=== PATIENT | male | born 1975 | race Caucasian/White ===

== ENCOUNTER 2017-05-09 02:24 | Emergency (ER) | payer OTHER, MEDICAID ==
[~2017-05-09] VITALS: Ht 185.4 cm; Wt 75.0 kg
[~2017-05-09 02:24] MED LIST: FLE10 PO; INSLIS; INSU100C2 SC; OXYC10TA8 PO
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
[2017-05-09 02:30] VITALS: BP 138/78; PULSE 91; RESP 16; O2SAT 97
[2017-05-09] MEDS ORDERED: Dextrose 10% 250 ML IV ONE (03:45)
[2017-05-09 04:48] VITALS: BP 115/74; PULSE 82; RESP 18; O2SAT 98
== END 2017-05-09 04:53 ==
LOC: SED 02:24
DX: E11.649 Type 2 diabetes mellitus with hypoglycemia without coma (principal); Z88.0 Allergy status to penicillin; Z79.4 Long term (current) use of insulin